=== PATIENT | female | born 1995 | race Two or more races ===

== ENCOUNTER 2025-01-27 17:17 | Emergency (ER) | payer MEDICAID, SELFPAY ==
[2025-01-27 17:17] VITALS: BMI 22.8
[2025-01-27 17:42] VITALS: BP 105/65; PULSE 69; RESP 17; TEMP 36.7; O2SAT 98
--- NOTE | 2025-01-27 18:05 | EDRME_ITS ---
Rapid Medical Screening Exam RME Arrival date/time: 01/27/25 17:17 Chief Complaint: Nausea/Vomiting/Diarrhea Time Seen by Provider: 01/27/25 18:04 Vital signs: Vital Signs Temperature 98.0 F 01/27/25 17:42 Pulse Rate 69 01/27/25 17:42 Respiratory Rate 17 01/27/25 17:42 Blood Pressure 105/65 01/27/25 17:42 Pulse Oximetry (%) 98 01/27/25 17:42 Oxygen Delivery Method Room Air 01/27/25 17:42 Vital signs reviewed by provider: Yes RME Narrative: Patient is a 29-year-old female, G4, P3 at approximately 14 weeks a station that to the emergency department with feeling weak, with recurrent episodes of emesis. Patient has a history of hyperemesis gravidarum. Usually gets her care in [place], was told by her nuclear reactor operator to come to the emergency department whenever she feels weak as in the past her dehydration has resulted in metabolic abnormalities and arrhythmias. Patient does not have any allergic reactions however had a bad response to Reglan in the past. At this time is not nauseated.
[2025-01-27 18:33] LABS: Basophils # (Auto) 0.0 Thou/mm3 (0.0-0.2); Basophils % (Auto) 0 % (0-2.5); Eosinophils # (Auto) 0.1 Thou/mm3 (0.0-0.5); Eosinophils % (Auto) 1 % (0-10); Hematocrit 32.1 % (36.0-46.0); Hemoglobin 10.7 g/dL (12.0-16.0); Immature Granulocytes Auto 0.05 Thou/mm3 (0.00-0.00); Lymphocytes # (Auto) 3.4 Thou/mm3 (1.0-4.8); Lymphocytes % (Auto) 32 % (10-50); Mean Corpuscular HGB Conc 33.3 g/dl (31.0-37.0); Mean Corpuscular Hemoglobin 27.5 pg (25.0-35.0); Mean Corpuscular Volume 83 fL (80-100); Monocytes # (Auto) 0.8 Thou/mm3 (0.0-0.8); Monocytes % (Auto) 8 % (0-12); Neutrophils # (Auto) 6.3 Thou/mm3 (1.8-7.7); Neutrophils % (Auto) 59 % (37-80); Nucleated Red Blood Cell # 0.00 Thou/mm3 (0.00-0.00); Nucleated Red Blood Cell % 0 /100 WBC (0); Platelet Count 281 Thou/mm3 (140-440); RDW Standard Deviation 45.1 fL (36.4-46.3); Red Blood Count 3.89 Miln/mm3 (4.00-5.20); White Blood Count 10.7 Thou/mm3 (3.6-11.0)
[2025-01-27 18:53] LABS: Alanine Aminotransferase < 7 U/L (10-49); Albumin, Serum 4.0 gm/dL (3.5-5.0); Albumin/Globulin Ratio 1.5 (1.2-2.2); Alkaline Phosphatase 52 U/L (46-116); Anion Gap 10 (7-16); Aspartate Amino Transferase 13 U/L (0-34); BUN/Creatinine Ratio 15 Ratio (12-20); Bilirubin,Total 0.3 mg/dL (0.3-1.2); Blood Urea Nitrogen 9 mg/dL (9-23); Calcium 9.1 mg/dL (8.3-10.6); Calcium (Corrected) 9.1 mg/dL (8.5-10.1); Carbon Dioxide 21.8 mMol/L (20.0-31.0); Chloride 106 mMol/L (98-107); Creatinine (Component) 0.6 mg/dL (0.6-1.3); Estimated Creatinine Clearance 139.6 mL/min (>60); Globulin 2.7 gm/dL (2.3-3.5); Glucose 76 mg/dL (74-106); Osmolality,Calculated 273 (275-295); Potassium 3.8 mMol/L (3.4-5.1); Sodium 138 mMol/L (136-145); Total Protein 6.7 gm/dL (5.7-8.2); eGFR > 60 See Note
[2025-01-27 19:00] LABS: Collection Type, Urine Clean Catch
[2025-01-27 19:08] LABS: Bilirubin,Urine Negative (Negative); Blood,Urine Negative (Negative); Clarity,Urine Clear (Clear/Hazy); Color,Urine Yellow (Lt Yel-Yel); Culture Indicated,Urine Not Indicated; Glucose, Urine Negative (Negative); Ketones,Urine Trace (Negative); Leukocyte Esterase,Urine Negative (Negative); Nitrite,Urine Negative (Negative); PH,Urine 6.0 (5.0-7.0); Protein,Urine Trace (Neg - Trace); RBC,Urine 1 /hpf (0-3); Specific Gravity,Urine 1.036 (1.001-1.035); Squamous Epithelial Cell,Urine 3 /hpf (0-5); Urobilinogen,Urine 3.0 mg/dL (0.0-1.0); WBC,Urine 3 /hpf (0-5)
--- NOTE | 2025-01-27 19:20 | PC.NURSE ---
Pt informed this check writer that she could not wait any longer due to having her baby at home, stated she had to leave. This check writer informed her that the provider was awaiting her urine results and she had some IVF scheduled and she stated she knew but just couldnt wait.
== END 2025-01-27 19:21 | disposition left against medical advice (07) ==
PROVIDERS: Emergency Provider Emergency Medicine
DX: O26.892 Other specified pregnancy related conditions, second trimester (principal); R11.2 Nausea with vomiting, unspecified; R19.7 Diarrhea, unspecified; Z53.29 Procedure and treatment not carried out because of patient's decision for other reasons; Z3A.14 14 weeks gestation of pregnancy; R53.1 Weakness
CPT/HCPCS: 36415; 80053; 81001; 85025; 99282